=== PATIENT | male | born 2000 | race Caucasian/White ===

== ENCOUNTER 2019-07-03 23:52 | Emergency (ER) | payer SELFPAY ==
[~2019-07-03] VITALS: Ht 170.2 cm; Wt 69.0 kg
[2019-07-04] MEDS ORDERED: KETOROLAC 60MG/2ML VIAL IM STA (01:00)
[2019-07-04] MEDS ORDERED: KETOROLAC 30MG/ML VIAL IV STA (01:10)
[2019-07-04] MEDS ORDERED: VANCOMYCIN 1 G PREMIX 200 ML IV ONE (01:15)
[2019-07-04] MEDS ORDERED: PIPERACILLIN/TAZ 3.375G PREMIX 50 ML IV ONE (01:15)
[2019-07-04 01:25] LABS: BASOPHILS % 0.3 % (0.0-2.0); EOSINOPHILS % 0.3 % (0.0-5.0); HEMATOCRIT. 45.7 % (42.0-52.0); HEMOGLOBIN. 15.9 g/dL (14.0-18.0); LYMPHOCYTES % 18.8 % (20.0-50.0); MEAN CORPUSCULAR HEMOGLOBIN 32.1 pg (28.0-32.0); MEAN CORPUSCULAR VOLUME 92.4 fL (80.0-94.0); MEAN PLATELET VOLUME 6.8 fl (7.4-10.4); MONOCYTES % 6.9 % (2.0-8.0); NEUTROPHILS % 73.7 % (40.0-76.0); PLATELET 284 x1000/uL (130-400); RED BLOOD CELL COUNT 4.95 mill/uL (4.7-6.1); RED CELL DISTRIBUTION WIDTH 13.2 % (11.6-14.6)
[2019-07-04 01:29] LABS: CHLORIDE 104 mEq/L (98-107)
[2019-07-04 03:48] VITALS: BP 138/87
== END 2019-07-04 03:48 | disposition home or self-care (01) ==
LOC: ER 23:52
DX: L03.012 Cellulitis of left finger (principal); F12.10 Cannabis abuse, uncomplicated
CPT/HCPCS: 36415; 73140; 80048; 85025; 96365; 96375; 99284; J1885; J2543; J3370

== ENCOUNTER 2023-07-12 19:08 | Emergency (ER) | payer OTHER ==
[~2023-07-12] VITALS: Ht 170.2 cm; Wt 73.0 kg
[2023-07-12 19:15] VITALS: O2SAT 100
[2023-07-12] MEDS ORDERED: TETANUS, DIPHTHERIA, PERTUSSIS VAC/PF 0.5ML (>10YR OLD) IM ONE (20:15)
[2023-07-12] MEDS ORDERED: ACETAMINOPHEN 500MG TABLET PO ONE (20:15)
[2023-07-12 20:41] VITALS: BP 122/74; PULSE 98; RESP 18; TEMP 98.2
== END 2023-07-12 21:00 | disposition home or self-care (01) ==
LOC: ER 19:08
DX: F19.239 Other psychoactive substance dependence with withdrawal, unspecified (principal); Z90.49 Acquired absence of other specified parts of digestive tract
CPT/HCPCS: 99281